=== PATIENT | female | born 1980 | race American Indian/Alaskan Native ===

== ENCOUNTER 2016-06-23 14:26 | Emergency (ER) | payer OTHER ==
[2016-06-23 15:12] VITALS: BP 127/95
[2016-06-23 15:58] LABS: Alanine Aminotransferase 10 units/L (7-56); Albumin 3.9 g/dL (3.9-5); Albumin/Globulin Ratio 1.1 %; Alkaline Phosphatase 22 units/L (35-129); Anion Gap 17 mmol/L; BUN/Creatinine Ratio 6.25; Basophils % (Auto) 0.8 % (0.0-1.8); Bilirubin,Total 0.3 mg/dL (0.1-1.2); Blood Urea Nitrogen 5 mg/dL (7-17); Calcium 9.2 mg/dL (8.4-10.2); Carbon Dioxide 24 mmol/L (22-30); Chloride 102.8 mmol/L (98-107); Eosinophils % (Auto) 1.5 % (0.0-4.3); Glucose 90 mg/dL (65-100); Hematocrit 38.3 % (30.3-42.9); Hemoglobin 11.9 gm/dl (10.1-14.3); Lipase 27 units/L (13-60); Mean Corpuscular HGB Conc 31 % (30-34); Mean Corpuscular Volume 75 fl (79-97); Platelet Count 297 K/mm3 (140-440); Potassium 4.2 mmol/L (3.6-5.0); Red Blood Count 5.11 M/mm3 (3.65-5.03); Red Cell Distribution Width 17.8 % (13.2-15.2); Sodium 140 mmol/L (137-145); Total Protein 7.3 g/dL (6.3-8.2)
[2016-06-23 16:00] LABS: Mean Corpuscular Hemoglobin 23 pg (28-32)
[2016-06-23 16:42] LABS: Bacteria,Urine 1+ /HPF (Negative); Bilirubin,Urine NEG (Negative); Blood,Urine MOD (Negative); Ketones,Urine NEG (Negative); Leukocyte Esterase,Urine LG (Negative); Mucus,Urine FEW /HPF; Nitrite,Urine NEG (Negative); Urobilinogen,Urine < 2.0 mg/dL (<2.0)
== END 2016-06-23 20:35 | disposition left against medical advice (07) ==
LOC: ED 14:26
DX: R10.9 Unspecified abdominal pain (principal); J02.9 Acute pharyngitis, unspecified; Z53.21 Procedure and treatment not carried out due to patient leaving prior to being seen by health care provider
CPT/HCPCS: 36415; 80053; 81001; 81025; 83690; 85025

== ENCOUNTER 2016-06-28 20:24 | Emergency (ER) | payer OTHER ==
[2016-06-28 21:06] LABS: Basophils % (Auto) 0.8 % (0.0-1.8); Hematocrit 37.7 % (30.3-42.9); Hemoglobin 11.9 gm/dl (10.1-14.3); Mean Corpuscular HGB Conc 32 % (30-34); Mean Corpuscular Volume 75 fl (79-97); Platelet Count 326 K/mm3 (140-440); Red Blood Count 5.02 M/mm3 (3.65-5.03); Red Cell Distribution Width 17.8 % (13.2-15.2); White Blood Count 10.7 K/mm3 (4.5-11.0)
[2016-06-28 21:07] LABS: Mean Corpuscular Hemoglobin 24 pg (28-32)
[2016-06-28 21:27] LABS: Alanine Aminotransferase 9 units/L (7-56); Albumin 3.8 g/dL (3.9-5); Albumin/Globulin Ratio 1.1 %; Alkaline Phosphatase 21 units/L (35-129); Anion Gap 18 mmol/L; Bilirubin,Total 0.4 mg/dL (0.1-1.2); Blood Urea Nitrogen 8 mg/dL (7-17); Calcium 8.9 mg/dL (8.4-10.2); Carbon Dioxide 23 mmol/L (22-30); Chloride 98.5 mmol/L (98-107); Glucose 98 mg/dL (65-100); Lipase 14 units/L (13-60); Potassium 3.9 mmol/L (3.6-5.0); Sodium 136 mmol/L (137-145); Total Protein 7.4 g/dL (6.3-8.2)
[2016-06-28 22:05] LABS: Bilirubin,Urine NEG (Negative); Blood,Urine SM (Negative); Ketones,Urine TR mg/dL (Negative); Leukocyte Esterase,Urine TR (Negative); Mucus,Urine 3+ /HPF; Nitrite,Urine NEG (Negative); Urobilinogen,Urine < 2.0 mg/dL (<2.0)
--- NOTE | 2016-06-29 06:15 | Emergency Department Report ---
ED General Adult HPI - General Chief complaint: Abdominal Pain Stated complaint: STOMACH/BACK PAIN Time Seen by Provider: 06/29/16 06:14 Source: patient Mode of arrival: Wheelchair Limitations: No Limitations - History of Present Illness Initial comments: Patient complains of a lower lateral flank pain somewhat involving the posterior and anterior abdomen for several days. She presented to the emergency department last Tuesday but a low. He returns today with recurrent pain. She denies nausea vomiting diaphoresis dyspnea chest pain breathing difficulty or any sciatica type symptoms. She's not had any cough or any pleuritic pain. She denies any difficulty urinating. She denies fever or chills. She states she hasn't had similar such pain. -: week(s) Location: back, abdomen, left Radiation: non-radiation Quality: aching Consistency: constant Improves with: none Worsens with: none Associated Symptoms: denies other symptoms Treatments Prior to Arrival: none - Related Data Home Medications Medication Instructions Recorded Confirmed Last Taken Acetaminophen [Acetaminophen TAB] 2 tab PO Q4H PRN 06/29/16 06/29/16 06/26/16 Previous Rx's Medication Instructions Recorded Last Taken Type HYDROcodone/APAP 5-325 [[place] 1 each PO Q6HR PRN #10 tablet 06/29/16 Unknown Rx 5/325] Allergies Allergy/AdvReac Type Severity Reaction Status Date / Time No Known Allergies Allergy Verified 06/23/16 15:08 ED Review of Systems ROS: Stated complaint: STOMACH/BACK PAIN Other details as noted in HPI Constitutional: denies: chills, fever Eyes: denies: eye pain, eye discharge, vision change ENT: denies: ear pain, throat pain Respiratory: denies: cough, shortness of breath, wheezing Cardiovascular: denies: chest pain, palpitations Endocrine: no symptoms reported Gastrointestinal: abdominal pain. denies: nausea, diarrhea Genitourinary: denies: urgency, dysuria, discharge Musculoskeletal: back pain. denies: joint swelling, arthralgia Skin: denies: rash, lesions Neurological: denies: headache, weakness, paresthesias Psychiatric: denies: anxiety, depression Hematological/Lymphatic: denies: easy bleeding, easy bruising ED Past Medical Hx - Past Medical History Previous Medical History?: No - Surgical History Past Surgical History?: No - Social History Smoking Status: Current Every Day Smoker Substance Use Type: Alcohol - Medications Home Medications: Home Medications Medication Instructions Recorded Confirmed Last Taken Type Acetaminophen [Acetaminophen TAB] 2 tab PO Q4H PRN 06/29/16 06/29/16 06/26/16 History HYDROcodone/APAP 5-325 [[place] 1 each PO Q6HR PRN #10 tablet 06/29/16 Unknown Rx 5/325] ED Physical Exam - General Limitations: No Limitations General appearance: alert, in no apparent distress - Head Head exam: Present: atraumatic, normocephalic - Eye Eye exam: Present: normal appearance, PERRL, EOMI. Absent: scleral icterus - ENT ENT exam: Present: mucous membranes moist - Neck Neck exam: Present: normal inspection - Respiratory Respiratory exam: Present: normal lung sounds bilaterally. Absent: respiratory distress - Cardiovascular Cardiovascular Exam: Present: regular rate, normal rhythm. Absent: systolic murmur, diastolic murmur, rubs, gallop - GI/Abdominal GI/Abdominal exam: Present: soft, normal bowel sounds. Absent: distended, tenderness, guarding, rebound, rigid - Extremities Exam Extremities exam: Present: normal inspection - Back Exam Back exam: Present: normal inspection, full ROM. Absent: tenderness, CVA tenderness (R), CVA tenderness (L), muscle spasm, paraspinal tenderness, vertebral tenderness - Neurological Exam Neurological exam: Present: alert, oriented X3, CN II-XII intact. Absent: motor sensory deficit - Psychiatric Psychiatric exam: Present: normal affect, normal mood - Skin Skin exam: Present: warm, dry, intact, normal color. Absent: rash ED Course Vital Signs 06/28/16 06/28/16 06/29/16 20:29 20:42 03:01 Temperature 98.9 F 98.9 F 98.2 F Pulse Rate 91 H 91 H 74 Respiratory 20 20 14 Rate Blood Pressure 136/90 Blood Pressure 136/90 108/67 [Right] O2 Sat by Pulse 99 100 100 Oximetry ED Medical Decision Making - Lab Data Result diagrams: 06/28/16 20:49 06/28/16 20:49 Laboratory Results - last 24 hr 06/28/16 06/28/16 06/28/16 20:49 20:49 21:37 WBC 10.7 RBC 5.02 Hgb 11.9 Hct 37.7 MCV 75 L MCH 24 L MCHC 32 RDW 17.8 H Plt Count 326 Lymph % (Auto) 19.8 [place] % (Auto) 5.2 Eos % (Auto) 2.0 Baso % (Auto) 0.8 Lymph # 2.1 [place] # 0.6 Eos # 0.2 Baso # 0.1 Seg Neutrophils % 72.2 H Seg Neutrophils # 7.7 Sodium 136 L Potassium 3.9 Chloride 98.5 Carbon Dioxide 23 Anion Gap 18 BUN 8 Creatinine 0.8 Estimated GFR > 60 BUN/Creatinine Ratio 10.00 Glucose 98 Calcium 8.9 Total Bilirubin 0.4 AST 13 ALT 9 Alkaline Phosphatase 21 L Total Protein 7.4 Albumin 3.8 L Albumin/Globulin Ratio 1.1 Lipase 14 Urine Color Yellow Urine Turbidity Slightly-cloudy Urine pH 6.0 Ur Specific [place] 1.018 Urine Protein 30 mg/dl Urine Glucose (UA) Neg Urine Ketones Tr Urine Blood Sm Urine Nitrite Neg Urine Bilirubin Neg Urine Urobilinogen < 2.0 Ur Leukocyte Esterase Tr Urine WBC (Auto) 1.0 Urine RBC (Auto) 5.0 U Epithel Cells (Auto) 1.0 Urine Mucus 3+ Urine HCG, Qual 06/28/16 21:37 WBC RBC Hgb Hct MCV MCH MCHC RDW Plt Count Lymph % (Auto) [place] % (Auto) Eos % (Auto) Baso % (Auto) Lymph # [place] # Eos # Baso # Seg Neutrophils % Seg Neutrophils # Sodium Potassium Chloride Carbon Dioxide Anion Gap BUN Creatinine Estimated GFR BUN/Creatinine Ratio Glucose Calcium Total Bilirubin AST ALT Alkaline Phosphatase Total Protein Albumin Albumin/Globulin Ratio Lipase Urine Color Urine Turbidity Urine pH Ur Specific [place] Urine Protein Urine Glucose (UA) Urine Ketones Urine Blood Urine Nitrite Urine Bilirubin Urine Urobilinogen Ur Leukocyte Esterase Urine WBC (Auto) Urine RBC (Auto) U Epithel Cells (Auto) Urine Mucus Urine HCG, Qual Negative - Radiology Data Radiology results: report reviewed interpreted by me: CT abdomen and pelvis was normal. Critical care attestation.: If time is entered above; I have spent that time in minutes in the direct care of this critically ill patient, excluding procedure time. ED Disposition Clinical Impression: Musculoskeletal pain Disposition: DISCHARGED TO HOME OR SELFCARE Is pt being admited?: No Does the pt Need Aspirin: No Condition: Stable Instructions: Flank Pain (ED) Additional Instructions: Follow-up with primary care provider. Rx as needed for pain. Return any acute change or problem. Prescriptions: HYDROcodone/APAP 5-325 [[place] 5/325] 1 each PO Q6HR PRN #10 tablet PRN Reason: Pain Referrals: PRIMARY CARE,MD [Primary Care Provider] - 3-5 Days [facility] [Provider Group] - 3-5 Days Time of Disposition: 10:25
[2016-06-29] MEDS ORDERED: TORADOL IM ONE (07:02)
--- NOTE | 2016-06-29 07:33 | Cat Scan Report ---
CT OF THE ABDOMEN AND PELVIS WITHOUT CONTRAST HISTORY: Left flank pain. TECHNIQUE: Helical CT without contrast. Sagittal and coronal reformatted images. FINDINGS: Within the limits of a noncontrast exam, the abdominal and pelvic viscera are within normal limits. The liver, biliary system, pancreas, spleen, kidneys, adrenal glands and bladder are unremarkable. The bowel loops are normal caliber and wall thickness. Normal appendix. The aorta is normal caliber. No ascites, bulky adenopathy or inflammatory changes. The lung bases are clear. Normal heart size. No suspicious bony lesion. IMPRESSION: Unremarkable noncontrast CT of the abdomen and pelvis.
[2016-06-29 10:51] VITALS: BP 108/72
== END 2016-06-29 10:51 | disposition home or self-care (01) ==
LOC: ED 20:24
DX: M79.1 Myalgia (principal); F17.200 Nicotine dependence, unspecified, uncomplicated
CPT/HCPCS: 36415; 74176; 80053; 81001; 81025; 83690; 85025; 96372; 99284; J1885